=== PATIENT | female | born 1965 | race Caucasian/White ===

== ENCOUNTER → 2018-01-05 | Outpatient (CLI) | payer OTHER ==
--- NOTE | ~2018-01-05 | 24HR ---
[facility] [place] [address] 24 HR ELECTROCARDIOGRAM REPORT Name: LESTER TA Room #: REG CL 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 The study duration was 24 hours and the technical quality was good. 2. Predominant rhythm was sinus rhythm at an average heart rate of 97 bpm, range 68-143 bpm. The longest RR interval was 1.1 seconds. 3. Occasional, isolated atrial premature complexes. No atrial fibrillation or atrial flutter. No PSVT. No heart block. 4. Occasional, isolated premature ventricular complexes. No ventricular couplets or triplets. No ventricular tachycardia. Ventricular ectopy represented 0.5% of the total QRS complexes. 5. Symptoms reported as chest pain corresponded to isolated premature ventricular complexes Electronically Signed On 01-10-2018 7:41:00 [employer]INTENA[employer]CE PERSON by Jesus Alberto Tapia [email or web address] <ELECTRONICALLY SIGNED> By: Jesus Alberto Tapia MD, [facility] 01/10/18 0741 1405 1405 Jesus Alberto Tapia MD, [facility] /EPI
== END ==
LOC: CV 08:06
DX: R00.2 Palpitations (principal); I10 Essential (primary) hypertension; E78.5 Hyperlipidemia, unspecified

== ENCOUNTER → 2019-08-04 | Outpatient (CLI) | payer OTHER | LOC: CAT 08:04 | DX: Z13.6 Encounter for screening for cardiovascular disorders (principal); E78.00 Pure hypercholesterolemia, unspecified; I25.10 Atherosclerotic heart disease of native coronary artery without angina pectoris ==

== ENCOUNTER → 2019-12-25 | Outpatient (CLI) | payer OTHER | LOC: SJCVCIMAG 11:12 | DX: I10 Essential (primary) hypertension (principal); R68.84 Jaw pain; R07.9 Chest pain, unspecified ==

== ENCOUNTER → 2020-08-16 | Outpatient (CLI) | payer OTHER | LOC: SJCVCIMAG 09:49 | PROVIDERS: ATTEND Internal Medicine Cardiovascular Disease | DX: I73.9 Peripheral vascular disease, unspecified (principal); M79.604 Pain in right leg; M79.605 Pain in left leg; E78.2 Mixed hyperlipidemia ==

== ENCOUNTER → 2021-07-10 | Outpatient (CLI) | payer BC, OTHER | LOC: SJCVCIMAG 08:53 | PROVIDERS: ATTEND Internal Medicine Cardiovascular Disease | DX: I25.10 Atherosclerotic heart disease of native coronary artery without angina pectoris (principal); E78.5 Hyperlipidemia, unspecified; I10 Essential (primary) hypertension ==